=== PATIENT | male | born 1990 | race Two or more races ===

== ENCOUNTER 2024-12-07 00:55 | Emergency (ER) | payer SELFPAY ==
[~2024-12-07] VITALS: Ht 172.7 cm; Wt 86.2 kg
[2024-12-07 01:09] VITALS: BP 107/66; PULSE 109; RESP 18; TEMP 98
[2024-12-07] MEDS ORDERED: ACET500T58 PO (02:40)
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
[2024-12-07] MEDS: ACETAMINOPHEN 325 MG TAB PO ONE (02:46)
[2024-12-07 03:30] VITALS: O2SAT 98
--- NOTE | 2024-12-07 03:52 | DVH ---
EXAM: XY NASAL BONES 3+VIEWS CLINICAL INDICATION: FACIAL PAIN TECHNIQUE: XY NASAL BONES 3+VIEWS Comparison: None FINDINGS/IMPRESSION: There is no evidence of acute fracture or dislocation. The visualized joint space is well maintained. The alignment is anatomical. There is no radiopaque foreign body.
--- NOTE | 2024-12-07 03:59 | DVH ---
EXAMINATION: XY L RIB X RAY INDICATION: LEFT SIDED RIB CAGE PAIN COMPARISON: None TECHNIQUE: Frontal view of the chest and 4 views of the left ribs history FINDINGS: No focal consolidation, pleural effusion or significant pneumothorax. Normal cardiomediastinal silhou ette. No displaced left rib fracture. IMPRESSION: No acute cardiopulmonary disease. No displaced left rib fracture.
--- NOTE | 2024-12-07 04:00 | DVH ---
INDICATION: NECK PAIN COMPARISON: None TECHNIQUE: 3 views of the cervical spine were obtained. FINDINGS: The cervical vertebral alignment is normal. The predental space is normal. The intervertebral disc spaces are well-maintained. No significant facet arthropathy is noted. No acute fracture, vertebral compression deformity or aggressive osseous lesions. The imaged lung apices are unremarkable. IMPRESSION: No acute fracture.
== END 2024-12-07 04:22 | disposition home or self-care (01) ==
LOC: EDBD 00:55 → ER 00:55
DX: S16.1XXA Strain of muscle, fascia and tendon at neck level, initial encounter (principal); S20.212A Contusion of left front wall of thorax, initial encounter; S00.31XA Abrasion of nose, initial encounter; Y04.8XXA Assault by other bodily force, initial encounter; Y93.89 Activity, other specified; Y92.098 Other place in other non-institutional residence as the place of occurrence of the external cause; Y99.8 Other external cause status
CPT/HCPCS: 70160; 71101; 72040